=== PATIENT | female | born 1990 | race Caucasian/White ===

== ENCOUNTER 2016-12-02 08:47 | Observation (INO) | payer MEDICAID ==
[~2016-12-02 08:47] MED LIST: CRANBERRY250 M1 PO; IBUPROFEN800 M1 PO; NORCO 5/325 TAB1 TAB PO; NORTREL1 T PO; PRENATAL TABLE1 EAC3 PO
== END 2016-12-02 10:00 ==
LOC: LDR 08:47
PROVIDERS: ADMIT Obstetrics & Gynecology
DX: O36.8120 Decreased fetal movements, second trimester, not applicable or unspecified (principal); Z3A.27 27 weeks gestation of pregnancy; Z79.899 Other long term (current) drug therapy; Z88.0 Allergy status to penicillin; Z88.1 Allergy status to other antibiotic agents; Z88.2 Allergy status to sulfonamides; Z88.5 Allergy status to narcotic agent; Z88.8 Allergy status to other drugs, medicaments and biological substances; Z87.891 Personal history of nicotine dependence; Z90.49 Acquired absence of other specified parts of digestive tract; Z98.890 Other specified postprocedural states

== ENCOUNTER 2016-12-26 14:59 | Inpatient (IN) | payer MEDICAID ==
[2016-12-26] MEDS ORDERED: TERAZOL 745 G1 VG (15:44)
[2016-12-28 10:59] LABS: BASO % 0.2 % (0-2); HCT-HEMATOCRIT 32.8 % (34.0-49.0); HGB-HEMOGLOBIN 10.8 gm/dl (12.0-15.5); IMMATURE GRANULOCYTES ABSOLUTE 0.17 tho/cmm (0-0.03); IMMATURE GRANULOCYTES PERCENT 1.4 % (0-0.3); LYMPH % 13.3 % (20-45); LYMPH ABSOLUTE COUNT 1.6 tho/cmm (0.8-4.5); MCH (MEAN CORPUSCULAR HGB) 26.9 pg (28.0-32.0); MCHC MEAN CORPUSCULAR HGB CONC 32.9 % (32.0-36.0); MCV (MEAN CELL VOLUME) 81.8 fl (82.0-96.0); MEAN PLATELET VOLUME 10.4 cmc (9.4-12.4); MONO % 4.1 % (0-12); MONOCYTE ABSOLUTE COUNT 0.5 tho/cmm (0.0-1.2); NEUTROPHIL ABSOLUTE COUNT 9.7 tho/cmm (1.6-8.0); NEUTROPHIL-AUTOMATED 9.7 tho/cmm (1.6-8.0); PLATELET COUNT 241 tho/cmm (150-450); RED BLOOD COUNT 4.01 mil/cmm (4.00-5.20); RED CELL DISTRIBUTION WIDTH 13.6 % (12.4-16.4); WHITE BLOOD COUNT 11.9 tho/cmm (4.0-10.0)
[2016-12-28 11:58] LABS: CORD BLOOD PH ARTERIAL 7.4 Units (7.18-7.38)
[2016-12-29] MEDS ORDERED: PERCOCET 5-3251 EACH PO (04:25)
[2016-12-29] MEDS ORDERED: IBUPROFEN800 M1 PO (04:25)
== END 2016-12-29 10:45 | DRG 765 ==
LOC: LDR 14:59 → OBGD 12-28 13:30
PROVIDERS: ADMIT Obstetrics & Gynecology
PROC: 10D00Z1 Extraction of Products of Conception, Low, Open Approach (ICD-10-PCS; principal; 2016-12-28)
DX: O76 Abnormality in fetal heart rate and rhythm complicating labor and delivery (principal); Q79.3 Gastroschisis; Z37.0 Single live birth; Z3A.32 32 weeks gestation of pregnancy; Z87.891 Personal history of nicotine dependence
CPT/HCPCS: J0702; J3370; J3475; J7121